=== PATIENT | male | born 1965 | race Caucasian/White ===

== ENCOUNTER 2017-04-13 06:00 | Emergency (ER) | payer MEDICAID ==
[~2017-04-13] VITALS: Ht 185.4 cm; Wt 81.6 kg
[2017-04-13 06:00] VITALS: BP 138/75
== END 2017-04-13 06:59 | disposition home or self-care (01) ==
LOC: ER 06:06
DX: L03.116 Cellulitis of left lower limb (principal); F17.200 Nicotine dependence, unspecified, uncomplicated
CPT/HCPCS: A4606; Z7610

== ENCOUNTER 2017-04-20 11:37 | Emergency (ER) | payer MEDICAID ==
[~2017-04-20] VITALS: Ht 185.4 cm; Wt 127.0 kg
--- NOTE | 2017-04-20 11:49 | NUR ---
SELF PRESENT TO ED FOR LEFT LEG CHECK. PER PT HE WAS HERE LAST WEEK FOR THE SAME REASON- CELLULITIS AND WAS GIVEN ATB. LEFT LEG APPEARS WITH SLIGHT REDNESS. NO SWELLING, SKIN INTACT. CELLULITIS APPEARS HEALED. VSS
--- NOTE | 2017-04-20 12:03 | NUR ---
Patient discharged to home in stable condition. Written and verbal after care instructions given. Patient verbalizes understanding of instruction.
[2017-04-20 12:04] VITALS: BP 150/76
== END 2017-04-20 12:09 | disposition home or self-care (01) ==
LOC: ER 11:39
DX: L03.116 Cellulitis of left lower limb (principal); F17.200 Nicotine dependence, unspecified, uncomplicated
CPT/HCPCS: A4606; Z7610